=== PATIENT | male | born 1980 | race Caucasian/White ===

== ENCOUNTER 2022-09-12 15:42 | Inpatient (IN) | payer BC | END 2022-09-15 16:00 | disposition home or self-care (01) | DRG 244 | LOC: ER 15:42 → PCU 15:43 | PROVIDERS: ADMIT Family Medicine | PROC: 0JH606Z Insertion of Pacemaker, Dual Chamber into Chest Subcutaneous Tissue and Fascia, Open Approach (ICD-10-PCS; principal; 2022-09-15) | PROC: 02H63JZ Insertion of Pacemaker Lead into Right Atrium, Percutaneous Approach (ICD-10-PCS; 2022-09-15) | PROC: 02HK3JZ Insertion of Pacemaker Lead into Right Ventricle, Percutaneous Approach (ICD-10-PCS; 2022-09-15) | DX: I49.5 Sick sinus syndrome (principal); N52.9 Male erectile dysfunction, unspecified; I44.1 Atrioventricular block, second degree; F10.90 Alcohol use, unspecified, uncomplicated; G43.909 Migraine, unspecified, not intractable, without status migrainosus; Z79.899 Other long term (current) drug therapy; Z88.8 Allergy status to other drugs, medicaments and biological substances ==